=== PATIENT | female | born 1960 | race Caucasian/White ===

== ENCOUNTER 2022-08-06 07:25 | Outpatient (CLI) | payer OTHER | END 2022-08-06 07:26 | disposition home or self-care (01) | LOC: CSHULT 07:25 | PROVIDERS: ATTEND Physician Assistant Medical | DX: R10.11 Right upper quadrant pain (principal); K44.9 Diaphragmatic hernia without obstruction or gangrene; N20.0 Calculus of kidney | CPT/HCPCS: 76700 ==

== ENCOUNTER 2023-12-24 08:08 | Outpatient (CLI) | payer OTHER ==
[2023-12-24] MEDS ORDERED: Iopamidol 300 61% 100 ML VIAL FS ONE (12:03)
== END 2023-12-24 08:09 | disposition home or self-care (01) ==
LOC: CSHCT 08:08
PROVIDERS: ATTEND Surgery
DX: R10.9 Unspecified abdominal pain (principal); K57.30 Diverticulosis of large intestine without perforation or abscess without bleeding; N63.20 Unspecified lump in the left breast, unspecified quadrant
CPT/HCPCS: 74177; 82565; Q9967